=== PATIENT | female | born 1985 ===

== ENCOUNTER 2016-10-25 14:21 | Emergency (ER) | payer OTHER ==
--- NOTE | 2016-10-25 18:04 | UC ---
Throat Pain/Nasal Michele HPI - HPI Summary HPI Summary: complaint of cough and nasal congestion that started approx 2 weeks ago cough has worseed during thlast 4 days constant coughing productive cough with thick sputum at nights coughing fits at times intermittent fever during the last 2 weeks not taking any medication for symptoms - History of Current Complaint Chief Complaint: UCRespiratory Stated Complaint: COUGH Time Seen by Provider: 10/25/16 17:58 Hx Obtained From: Patient Hx Last Menstrual Period: 09/25 - Allergies/Home Medications Allergies/Adverse Reactions: Allergies Allergy/AdvReac Type Severity Reaction Status Date / Time Cephalexin [From Keflex] Allergy Hives Verified 10/25/16 17:27 Erythromycin Allergy Hives Verified 10/25/16 17:27 Home Medications: Home Medications Fluticasone NASAL SPRAY 50MCG* [Flonase NASAL SPRAY 50MCG*] 10/25/16 [History Confirmed 10/25/16] LevoCETirizine TAB (NF) [Xyzal TAB (NF)] 10/25/16 [History] PMH/Surg Hx/FS Hx/Imm Hx Previously Healthy: Yes - Surgical History Surgical History: Yes Surgery Procedure, Year, and Place: Ankle Fx with repair LEFT - Family History Known Family History: Negative: Cardiac Disease, Diabetes - Social History Occupation: Employed Full-time Lives: With Family Alcohol Use: None Substance Use Type: None Smoking Status (MU): Never Smoked Tobacco Review of Systems Constitutional: Fever, Fatigue Skin: Negative Eyes: Negative ENT: Negative Respiratory: Cough Cardiovascular: Negative Gastrointestinal: Negative Genitourinary: Negative Motor: Negative Neurovascular: Negative Musculoskeletal: Negative Neurological: Negative Psychological: Negative All Other Systems Reviewed And Are Negative: Yes Physical Exam Triage Information Reviewed: Yes Appearance: No Pain Distress, Well-Nourished Vital Signs: Initial Vital Signs Temp 99.9 F 10/25/16 17:28 Pulse 79 10/25/16 17:28 Resp 16 10/25/16 17:28 BP 149/90 10/25/16 17:28 Pulse Ox 100 10/25/16 17:28 Vital Signs Reviewed: Yes Eyes: Positive: Conjunctiva Clear ENT: Positive: Pharyngeal erythema, Nasal congestion, Nasal drainage, TMs normal Neck: Positive: No Lymphadenopathy Respiratory: Positive: Lungs clear, Normal breath sounds, No respiratory distress Cardiovascular: Positive: RRR, No Murmur, Pulses Normal Abdomen Description: Positive: Nontender, Soft Bowel Sounds: Positive: Present Musculoskeletal: Positive: No Edema Neurological Exam: Normal Psychological Exam: Normal Skin Exam: Normal Throat Pain/Nasal Course/Dx - Differential Dx/Diagnosis Differential Diagnosis/HQI/PQRI: Sinusitis, URI Provider Diagnoses: bronchitis Discharge - Discharge Plan Condition: Stable Disposition: HOME Prescriptions: Albuterol HFA INHALER* [Ventolin HFA Inhaler*] 2 puff INH Q4H PRN #1 mdi PRN Reason: Wheezing Benzonatate CAP* [Tessalon 100 MG CAP*] 100 mg PO TID PRN #30 cap PRN Reason: Cough DOXYcycline CAP(*) [DOXYcycline 100MG CAP(*)] 100 mg PO BID #20 cap Patient Education Materials: Bronchospasm (ED), Acute Bronchitis (ED) Referrals: Earlene Santos NP [Primary Care Provider] - Additional Instructions: Please take antibiotic as directed Use your albuterol inhaler every 4-6 hours when needed for wheezing, shortness of breath or uncontrolled coughing. Increase fluids and rest Take acetaminophen or ibuprofen for fever or pain Please review your discharge instructions. If your symptoms do not improve please call your primary care provider or return to urgent care. Your blood pressure is elevated. Please contact your primary care provider within 1 day -4 weeks for further evaluation.
== END 2016-10-25 18:19 | disposition home or self-care (01) ==
LOC: UCEAST 14:21
DX: J40 Bronchitis, not specified as acute or chronic (principal); Z88.1 Allergy status to other antibiotic agents
CPT/HCPCS: 99202; G0463

== ENCOUNTER 2016-12-14 12:24 | Emergency (ER) | payer OTHER ==
--- NOTE | 2016-12-14 14:46 | UC ---
Throat Pain/Nasal Michele HPI - HPI Summary HPI Summary: 31 y/o female presents to the clinic c/o of sore throat and headache for the past 4 days. Patient reports her boyfriend has been Dx recently with mono and she is concern since she has had mild fever and tire. Pt denies SOB, cough, chest pain, N/V/D. 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 - History of Current Complaint Chief Complaint: UCGeneralIllness Stated Complaint: THROAT PAIN Time Seen by Provider: 12/14/16 14:03 Hx Obtained From: Patient Hx Last Menstrual Period: november 22 ?: No Onset/Duration: Gradual Onset, Lasting Days, Still Present Severity: Mild Pain Intensity: 3 Pain Scale Used: 0-10 Numeric Associated Signs & Symptoms: Positive: Dysphagia, Fever - mild on and off. - Epiglottits Risk Factors Epiglottis Risk Factors: Negative - Allergies/Home Medications Allergies/Adverse Reactions: Allergies Allergy/AdvReac Type Severity Reaction Status Date / Time Cephalexin [From Keflex] Allergy Hives Verified 10/25/16 17:27 Erythromycin Allergy Hives Verified 10/25/16 17:27 PMH/Surg Hx/FS Hx/Imm Hx Previously Healthy: Yes Respiratory History: Other - sesonal allergies Other Respiratory History: none - Surgical History Surgical History: Yes Surgery Procedure, Year, and Place: Ankle Fx with repair LEFT - Family History Known Family History: Positive: Cardiac Disease, Hypertension Negative: Diabetes - Social History Occupation: Employed Full-time Alcohol Use: None Substance Use Type: None Smoking Status (MU): Never Smoked Tobacco Review of Systems Constitutional: Fever - mild Skin: Negative Eyes: Negative ENT: Sore Throat, Nasal Discharge - mild and clear Cardiovascular: Negative Gastrointestinal: Negative Genitourinary: Negative Motor: Negative Neurovascular: Negative Musculoskeletal: Negative Neurological: Negative Psychological: Negative All Other Systems Reviewed And Are Negative: Yes Physical Exam Triage Information Reviewed: Yes Appearance: Well-Appearing, No Pain Distress, Well-Nourished, Obese Vital Signs: Initial Vital Signs Temp 99.3 F 12/14/16 13:37 Pulse 72 12/14/16 13:37 Resp 16 12/14/16 13:37 BP 122/85 12/14/16 13:37 Pulse Ox 100 12/14/16 13:37 Vital Signs Reviewed: Yes Eye Exam: Normal Eyes: Positive: Conjunctiva Clear ENT: Positive: Hearing grossly normal, Pharyngeal erythema - and positive exudate in the uvula and posterior pharynx, Nasal congestion, Nasal drainage - mild clear, TMs normal, Tonsillar exudate Dental Exam: Normal Neck exam: Normal Neck: Positive: Supple, Nontender, No Lymphadenopathy Respiratory Exam: Normal Respiratory: Positive: Chest non-tender, Lungs clear, Normal breath sounds Cardiovascular Exam: Normal Cardiovascular: Positive: RRR, No Murmur, Pulses Normal Abdominal Exam: Normal Abdomen Description: Positive: Nontender, No Organomegaly, Soft Bowel Sounds: Positive: Present Musculoskeletal Exam: Normal Neurological Exam: Normal Psychological Exam: Normal Skin Exam: Normal Throat Pain/Nasal Course/Dx - Course Course Of Treatment: Pharyngitis: Positive: Hearing grossly normal, Pharyngeal erythema - and positive exudate in the uvula and posterior pharynx, Nasal congestion, Nasal drainage - mild clear, TMs normal, Tonsillar exudate. Strep test ordered, result: negative. Most likely Infectious mononucleosis. Pt decline [place] test. Pt advised on symptomatic treatment and avoid exercise for 1 week. PT Rx Ibuprofen prn to alleviate symptoms. Pt Understood and agreed - Differential Dx/Diagnosis Differential Diagnosis/HQI/PQRI: Epiglottitis, Laryngitis, Mononucleosis, Pharyngitis, Sinusitis, URI Provider Diagnoses: pharyngitis and headache Discharge - Discharge Plan Condition: Stable Disposition: HOME Prescriptions: Ibuprofen TAB* [Motrin TAB* 600 MG] 600 mg PO Q6H PRN #20 tab PRN Reason: Pain Patient Education Materials: Pharyngitis (ED) Referrals: Earlene Santos NP [Primary Care Provider] - Additional Instructions: Please medications as instructed. Increase fluid intake and avoid exercise for 1 week. If symptoms worsen please return to the urgent care or follow up with your PCP for further evaluation and treatment.
== END 2016-12-14 15:21 | disposition home or self-care (01) ==
LOC: UCEAST 12:24
DX: J02.9 Acute pharyngitis, unspecified (principal); R51 Headache; Z88.3 Allergy status to other anti-infective agents
CPT/HCPCS: 87651; 99212; G0463